=== PATIENT | male | born 1970 | race Caucasian/White ===

== ENCOUNTER 2018-06-27 20:00 | Emergency (ER) | payer MEDICARE ==
[~2018-06-27] VITALS: Ht 170.2 cm; Wt 90.7 kg
[2018-06-27 20:24] LABS: URINE BILIRUBIN NEGATIVE (Negative); URINE BLOOD NEGATIVE (Negative); URINE CLARITY CLEAR; URINE COLOR YELLOW; URINE GLUCOSE-RANDOM NEGATIVE (Negative); URINE KETONES NEGATIVE (Negative); URINE LEUKOCYTES NEGATIVE (Negative); URINE NITRITE NEGATIVE (Negative); URINE PROTEIN NEGATIVE (Negative); URINE SPECIFIC GRAVITY <= 1.005 (1.005-1.030); URINE UROBILINOGEN 0.2 E.U./dl (0.2-1.0)
[2018-06-27 20:33] LABS: AMP/METHAMP Negative (Negative); BARBITURATES Negative (Negative); BENZODIAZEPINES POSITIVE (Negative); COCAINE Negative (Negative); METHADONE Negative (Negative); PCP Negative (Negative); THC Negative (Negative)
[2018-06-27 20:44] LABS: HEMATOCRIT 42.3 % (42.0-52.0); HEMOGLOBIN 14.7 gm/dL (14.0-18.0); MCH 30.3 pg (26.0-34.0); MCHC 34.8 g/dL (28.0-37.0); MCV 86.9 fL (80.0-100.0); MPV 6.8 fl. (7.2-11.1); RBC 4.87 mil/uL (4.50-6.00); RDW-CV 12.8 % (10.5-14.5); WBC 10.3 thou/uL (4.0-11.0)
[2018-06-27] MEDS ORDERED: BENTYL 20 MG TA20 M1 PO (20:49)
[2018-06-27] MEDS ORDERED: ZOFRAN ODT4 MG DISSOLVE (20:49)
[2018-06-27] MEDS ORDERED: CLONIDINE HCL0.2 M2 PO (20:49)
[2018-06-27 20:50] LABS: POTASSIUM 3.9 mmol/L (3.5-5.1)
[2018-06-27 21:13] VITALS: BP 161/135
[2018-06-28 14:52] LABS: OPIATES POSITIVE (Negative)
== END 2018-06-27 21:13 | disposition home or self-care (01) ==
LOC: M.ERS 20:00
PROVIDERS: Emergency Medicine Emergency Medical Services
DX: F11.23 Opioid dependence with withdrawal (principal); R11.2 Nausea with vomiting, unspecified; Z86.19 Personal history of other infectious and parasitic diseases